=== PATIENT | male | born 1960 | race Caucasian/White ===

== ENCOUNTER 2021-08-22 19:33 | Emergency (ER) | payer OTHER ==
[~2021-08-22] VITALS: Ht 175.3 cm; Wt 104.5 kg
[2021-08-22 20:04] VITALS: BP 155/94
[2021-08-22] MEDS ORDERED: LIDOcaine 5% patch TP STA (20:46)
[2021-08-22] MEDS ORDERED: acetaminophen 325mg tablet PO ONE (20:50)
[2021-08-22] MEDS ORDERED: ketorolac trometh inj. 60 MG/2 ML VIAL IM ONE (20:50)
== END 2021-08-22 21:14 | disposition home or self-care (01) ==
LOC: ER 19:34
DX: R07.81 Pleurodynia (principal); M54.9 Dorsalgia, unspecified; M25.561 Pain in right knee; V98.8XXA Other specified transport accidents, initial encounter; Y93.89 Activity, other specified; Y92.89 Other specified places as the place of occurrence of the external cause; Y99.8 Other external cause status
CPT/HCPCS: 71046; 96372; 99283; J1885